=== PATIENT | female | born 1990 | race Caucasian/White ===

== ENCOUNTER → 2017-07-01 12:45 | Outpatient (CLI) | payer OTHER, SELFPAY ==
--- NOTE | 2017-07-01 12:50 | HPBI_ITS ---
MAMMOGRAPHY - BILATERAL DIAGNOSTIC REASON FOR EXAM: Female, 27 years old. 2 week history of left breast pain and right breast soreness. PERTINENT HISTORY: Mother with breast cancer. TECHNIQUE: Digital bilateral breast roel (3D mammographic acquisition) in the CC and MLO projections. 2-D mediolateral oblique (MLO) and craniocaudad (CC) views of both breasts were obtained. CAD: Full Field Digital Mammography with Computer Added Detection was performed. COMPARISON: None. Baseline examination. FINDINGS: Breast Composition: The breasts are extremely dense, which lowers the sensitivity of mammography. There are no dominant masses or suspicious calcifications. No other significant abnormalities are identified. HPBI/DIAG MAMM W/CAD, BILAT IMPRESSION: Negative diagnostic mammogram. With the patient's history of right breast pain, correlation with ultrasound is recommended. ASSESSMENT CATEGORY: BIRADS Category 0: Incomplete. Need additional imaging evaluation. A letter regarding these results will be sent to the patient by the facility within 30 days. Approximately 10% of breast cancers are not detected by mammography. A normal mammogram should not delay biopsy of a clinically suspicious abnormality. Electronically Signed: Omar Michel MD at 13:55 EST Tel [phone], Service support ,
--- NOTE | 2017-07-01 12:50 | US_ITS ---
STUDY: ULTRASOUND BREAST - LEFT REASON FOR EXAM: Female, 27 years old. Pain in the left breast. TECHNIQUE: Axial and longitudinal images of the LEFT breast were performed with a high resolution ultrasound transducer. COMPARISON: Comparison is made with prior mammogram done earlier today. FINDINGS: LEFT Breast: There is a 1.2 cm x 1.4 cm x 0.6 cm cyst at the 3:00 position breast a 1 cm from the nipple. There is also evidence of a 1.3 cm x 1.2 cm x 0.5 cm benign appearing lymph node at the 5:00 position of the breast at 6 on recent nipple. US/Breast Limited Unilateral IMPRESSION: 1.2 cm x 1.4 cm x 0.6 m cyst at the 3:00 position of the breast at 1 cm from the nipple. 1.3 cm x 1.2 cm x 0.5 cm lymph node at the 5:00 position of the breast is 6 cm from the nipple. ASSESSMENT CATEGORY: BIRADS Category 2: Benign. A letter regarding these results will be sent to the patient by the facility within 30 days. Electronically Signed: Omar Michel MD at 15:09 EST Tel [phone], Service support ,
== END ==
PROVIDERS: Family Provider Family Medicine; PCP Family Medicine; Visit Provider Obstetrics & Gynecology
DX: N64.4 Mastodynia (principal)
CPT/HCPCS: 76642; 77062; 77066; G0279

== ENCOUNTER → 2017-12-26 12:18 | Outpatient (CLI) | payer OTHER, SELFPAY ==
--- NOTE | 2017-12-26 12:22 | RAD_ITS ---
STUDY: X-RAY - RIGHT ANKLE REASON FOR EXAM: Female, 27 years old. Pain TECHNIQUE: 3 view(s) of the ankle. COMPARISON: None. FINDINGS: Normal visualized distal tibia and fibula. Normal medial and lateral malleoli. Normal tibiotalar articulation and ankle mortise. Normal visualized talus and calcaneus. The visualized subtalar, talonavicular, calcaneocuboid and tarsal articulations are normal. Evidence of previous surgery to the navicular. The soft tissue structures are unremarkable. RAD/Ankle min 3 Views IMPRESSION: Normal x-ray examination of the ankle. Electronically Signed: Conner Clark MD at 12:31 EDT , Service support ,
== END ==
PROVIDERS: Family Provider Family Medicine; PCP Family Medicine; Visit Provider Family Medicine
DX: M25.571 Pain in right ankle and joints of right foot (principal)
CPT/HCPCS: 73610

== ENCOUNTER → 2018-11-05 | Outpatient (CLI) | payer OTHER, SELFPAY ==
[2018-11-05 13:31] LABS: Follicle Stimulating Hormone 5.1 mIU/mL; Luteinizing Hormone 5.7 mIU/mL; Thyroid Stim Hormone (TSH) 0.89 uIU/mL (0.358-3.74)
== END | disposition home or self-care (01) ==
LOC: WOBLAB 10:52
PROVIDERS: Family Provider Family Medicine; PCP Family Medicine; Visit Provider Obstetrics & Gynecology
DX: N92.6 Irregular menstruation, unspecified (principal)
CPT/HCPCS: 36415; 83001; 83002; 84439; 84443

== ENCOUNTER → 2019-02-09 16:04 | Outpatient (CLI) | payer OTHER, SELFPAY ==
[2019-02-09 17:33] LABS: Progesterone Level 36.25 ng/mL (See Comment)
== END ==
PROVIDERS: Visit Provider Obstetrics & Gynecology
DX: N97.0 Female infertility associated with anovulation (principal)
CPT/HCPCS: 36415; 84144

== ENCOUNTER → 2019-03-09 14:55 | Outpatient (CLI) | payer OTHER, SELFPAY | PROVIDERS: Visit Provider Obstetrics & Gynecology | DX: Z34.81 Encounter for supervision of other normal pregnancy, first trimester (principal); Z12.4 Encounter for screening for malignant neoplasm of cervix; Z11.3 Encounter for screening for infections with a predominantly sexual mode of transmission ==

== ENCOUNTER → 2019-04-12 16:46 | Outpatient (CLI) | payer OTHER, SELFPAY ==
[2019-04-12 17:16] LABS: Color, Urine Yellow (Yellow); Glucose, Dipstick Normal (Normal); Ketone-Dipstick Negative (Negative); Leukocyte Esterase-Dipstick 500 /ul (Negative); Nitrite-Dipstick Negative (Negative); Occult Blood-Urine 25 /ul (Negative); Protein-Dipstick Negative (Negative); Urine Bilirubin Dipstick Negative (Negative); Urine Clarity Sl. Cloudy (Clear); Urine Urobilinogen Normal (Normal); Urine pH 6.5 (5.0 - 8.0)
[2019-04-12 17:22] LABS: Absolute Lymphocyte Count 3.03 X10^3/uL (0.83-4.51); Absolute Neutrophil Count 6.9 X10^3/uL (2.0-7.7); Basophil# 0.06 X10^3/uL; Basophil% 0.5 % (0-1); Eosinophil# 0.16 X10^3/uL; Eosinophils% 1.4 % (0-5); Hematocrit 39.6 % (37-47); Hemoglobin 13.5 g/dL (12.0-15.0); Lymphocyte # 3.03 X10^3/ul (4.0); Lymphocyte % 27.3 % (19-41); Mean Corp Hgb Conc 34.1 g/dL (32-36); Mean Corpuscular Hgb 29.7 pg (27.0-32.0); Mean Platelet Vol. 10.7 fl (6.2-12.0); Monocyte# 0.88 X10^3/uL; Monocyte% 7.9 % (0-10); NRBC Flagged by Analyzer 0 % (0-5); Neutrophil # 6.94 X10^3/uL (2.7-7.7); Neutrophil % 62.6 % (47-70); Platelet Count 254 K/mm3 (150-450); RBC Distribution Width CV 13.7 % (11.6-14.6); RBC Distribution Width SD 43.4 fl (35.1-43.9); Red Blood Count 4.55 M/mm3 (4.2-5.4); White Blood Count 11.1 K/mm3 (4.4-11.0)
[2019-04-12 18:06] LABS: Thyroid Stim Hormone (TSH) 0.41 uIU/mL (0.358-3.74)
[2019-04-13 10:26] LABS: HIV - WCH Non-Reactive (Nonreactive); Hepatitis B Surface Antigen Non-Reactive (Nonreactive); Hepatitis C Antibody Non-Reactive (Nonreactive); Rubella IgG 233.1 IU/mL
[2019-04-15 02:46] LABS: Prenatal RPR NONREACTIVE (NONREACTIVE)
== END ==
PROVIDERS: Visit Provider Obstetrics & Gynecology
DX: Z34.81 Encounter for supervision of other normal pregnancy, first trimester (principal)
CPT/HCPCS: 36415; 81002; 84443; 85025; 86703; 86762; 86803; 87340

== ENCOUNTER → 2019-07-13 | Outpatient (CLI) | payer OTHER, SELFPAY ==
[2019-07-13 16:48] LABS: Mucous, Urine 0 SEEN /hpf (<or=2+); Red Blood Cells-Urine 0 SEEN /hpf (0-5)
[2019-07-13 17:12] LABS: Color, Urine Yellow (Yellow); Glucose, Dipstick Normal (Normal); Ketone-Dipstick Negative (Negative); Leukocyte Esterase-Dipstick 500 /ul (Negative); Nitrite-Dipstick Negative (Negative); Occult Blood-Urine 10 /ul (Negative); Protein-Dipstick 15 mg/dl (Negative); Urine Bilirubin Dipstick Negative (Negative); Urine Clarity Cloudy (Clear); Urine Urobilinogen Normal (Normal)
[2019-07-13 17:45] LABS: Bacteria 3+ /hpf (None Seen); Squamous Epithelial Cells - UA 10-25 SEEN /hpf (5-10)
[2019-07-13 17:48] LABS: White Blood Cells 50-100 SEEN /hpf (0-5)
== END | disposition home or self-care (01) ==
LOC: LABSPEC 16:45
PROVIDERS: Referring Provider Obstetrics & Gynecology; Visit Provider Obstetrics & Gynecology
DX: Z34.82 Encounter for supervision of other normal pregnancy, second trimester (principal)
CPT/HCPCS: 81001; 87086; 87088

== ENCOUNTER → 2019-07-26 | Outpatient (CLI) | payer OTHER, SELFPAY | END | disposition home or self-care (01) | LOC: LABSPEC 16:36 | PROVIDERS: Referring Provider Obstetrics & Gynecology; Visit Provider Obstetrics & Gynecology | DX: N39.0 Urinary tract infection, site not specified (principal) | CPT/HCPCS: 87086; 87088 ==

== ENCOUNTER → 2019-08-11 13:21 | Outpatient (CLI) | payer OTHER, SELFPAY ==
[2019-08-11 15:46] LABS: Hematocrit 34.8 % (37-47); Hemoglobin 11.8 g/dL (12.0-15.0); Mean Corp Hgb Conc 33.9 g/dL (32-36); Mean Corpuscular Hgb 30.3 pg (27.0-32.0); Mean Corpuscular Volume 89.5 fL (81-99); Mean Platelet Vol. 11.1 fl (6.2-12.0); Platelet Count 233 K/mm3 (150-450); RBC Distribution Width CV 13.1 % (11.6-14.6); RBC Distribution Width SD 42.7 fl (35.1-43.9); Red Blood Count 3.89 M/mm3 (4.2-5.4); White Blood Count 12.4 K/mm3 (4.4-11.0)
[2019-08-11 16:01] LABS: Glucose Challenge Gest 1H 50g 99 mg/dL (70-140)
== END ==
PROVIDERS: Visit Provider Obstetrics & Gynecology
DX: Z34.83 Encounter for supervision of other normal pregnancy, third trimester (principal)
CPT/HCPCS: 36415; 82950; 85027

== ENCOUNTER → 2019-09-17 | Outpatient (CLI) | payer OTHER, SELFPAY ==
--- NOTE | 2019-09-17 11:34 | VDLE_ITS ---
Reason For Study: Pain Procedure LEFT Exam performed in department. GSV is normal. A preliminary report was called and/or faxed CFV is compressible, spontaneous, phasic, to Eddie. competent, and demonstrates normal augmentation. FV is compressible, spontaneous, phasic, competent and demonstrates normal augmentation. POP V is compressible, spontaneous, phasic, competent and demonstrates normal augmentation. T/P Trunk is compressible. PTV is compressible. LT PerV is compressible. Interpretation Summary There is no evidence of left lower extremity deep vein thrombosis. Left great saphenous vein appears patent and compressible segmentally. Ordering Physician: Dolores Morgan Performed By: Elba Ocasio RVT
[2019-09-17 16:49] LABS: Bacteria 0 SEEN /hpf (None Seen); Mucous, Urine 0 SEEN /hpf (<or=2+); Red Blood Cells-Urine 0 SEEN /hpf (0-5); White Blood Cells 0 SEEN /hpf (0-5)
[2019-09-17 17:20] LABS: Color, Urine Yellow (Yellow); Glucose, Dipstick Normal (Normal); Ketone-Dipstick Negative (Negative); Leukocyte Esterase-Dipstick Negative /ul (Negative); Nitrite-Dipstick Negative (Negative); Occult Blood-Urine Negative /ul (Negative); Protein-Dipstick Negative (Negative); Urine Bilirubin Dipstick Negative (Negative); Urine Clarity Sl. Cloudy (Clear); Urine Urobilinogen Normal (Normal)
[2019-09-17 17:52] LABS: Amorphous Sediment 2+ URATE; Squamous Epithelial Cells - UA 0-5 SEEN /hpf (5-10)
== END | disposition home or self-care (01) ==
LOC: CVS 11:33 → LABSPEC 16:36
PROVIDERS: Referring Provider Obstetrics & Gynecology; Visit Provider Obstetrics & Gynecology
DX: Z34.83 Encounter for supervision of other normal pregnancy, third trimester (principal); M79.662 Pain in left lower leg; Z87.440 Personal history of urinary (tract) infections
CPT/HCPCS: 81001; 87086; 87088; 93971

== ENCOUNTER → 2019-09-29 | Outpatient (CLI) | payer OTHER, SELFPAY | END | disposition home or self-care (01) | PROVIDERS: Visit Provider Obstetrics & Gynecology | DX: Z36.85 Encounter for antenatal screening for Streptococcus B (principal) | CPT/HCPCS: 87081 ==

== ENCOUNTER 2019-10-27 19:00 | Inpatient (IN) | payer OTHER, SELFPAY ==
[2019-10-27 19:20] VITALS: BP 134/96; PULSE 99
[2019-10-27 19:21] VITALS: BP 119/82; PULSE 91
--- NOTE | 2019-10-27 21:19 | HP.PCM_ITS ---
- Problem List (1) 40 weeks gestation of Status: Acute History Date of Admission: 10/27/19 Final RAMY: 10/27/19 Final RAMY Source: US <20 weeks Gestational age: 40 Weeks and 1 Days History of this : This is a 29 year-old, G [1], P [0], at 40.0 weeks gestational age. Allergies No Known Allergies Allergy (Verified 10/27/19 19:33) Home Medications: Home Medications Vit No.130/Iron/Folic [ Tablet] 1 tab PO DAILY 10/27/19 Alcohol: None Number of Fetus(es): 1 NST - FHR Rate Baby A Baseline: 150 Variability:: Moderate Accelerations:: 15 x 15 Decelerations:: None NST Reactive:: Yes FHR Category:: Category I Uterine Activity:: quiet History Past Pregnancies: Past Pregnancies: none Labs: Mom's Microbiology 10/27/19 23:30 Mucosa - Nasopharyngeal Coronavirus COVID-19 PCR - Final Mom's Problem List Problem Status Onset Code 40 weeks gestation of Acute Z3A.40 Mom's Labs & Results 10/27/19 10/27/19 21:35 21:35 WBC 12.7 H RBC 4.22 Hgb 12.2 Hct 36.5 L MCV 86.5 MCH 28.9 MCHC 33.4 RDW Std Deviation 41.1 RDW Coeff of Ang 13.2 Plt Count 260 MPV 11.8 Immature Gran % (Auto) 0.400 Neut % (Auto) 66.5 Lymph % (Auto) 25.1 [place] % (Auto) 5.8 Eos % (Auto) 1.7 Baso % (Auto) 0.5 Absolute Neuts (auto) 8.5 H Absolute Lymphs (auto) 3.19 Nucleated RBC % 0 Blood Type A POSITIVE Antibody Screen NEGATIVE Course Did the patient receive Yes care? Labs Blood Type: A RH: POSITIVE RPR/VDRL/Syphilis Nonreactive Rubella status Immune HbSAg Negative Date Done: 04/12/19 Chlamydia Negative Gonorrhea Negative HIV/AIDS Non-Reactive Group B Strep: Negative Current Obstetrical History Gestational Diabetes No Incompetent Cervix No Infertility Yes: clomid IUGR No Macrosomia No Hypertension/Pre-eclampsia No Placenta Previa/Abruption No PTL/PROM No Uterine anomaly No Oligohydramnios No Polyhydramnios No Multiple gestation Yes: began with 4 sacs, only one FHR one week later Past Medical History Asthma No Diabetes No Hypertension No Heart disease No Mitral valve prolapse No Neurologic/Seizure disorder/ No Migraines Kidney disease No Liver disease No Varicosities No Clotting disorders/Hx of DVT No Thyroid Dysfunction No Other medical diseases No Psychiatric disorders No Major trauma No Abnormal PAP smear No Sleep apnea No Mammogram in the last 2 years Yes: for cyst-came back okay Social History Marital Status: Alleged father Troy Posada Hx Smoking No Smoking Status Never smoker How long have you used pt denies substances (years)? Expected Delivery Method: Spontaneous Vaginal Number of Visits: 12 Review of Systems Constitutional: Denies: Chills, Fever, Weight Change HEENT: Denies: Head Aches, Sinus Congestion, Sinus Drainage Cardiovascular: Denies: Chest Pain, Palpitations Respiratory: Denies: Cough, Shortness of breath at rest, Sputum production Gastrointestinal: Denies: Abdominal Pain, Nausea, Vomiting Genitourinary: Denies: Dysuria Musculoskeletal: Denies: Joint Pain, Joint Tenderness Skin: Denies: Rash, Wounds Neurological: Denies: Numbness, Tingling, Focal weakness Psychiatric: Denies: Anxiety, Depression, Homicidal Ideations, Suicidal Ideations Hematologic/ Lymphatic: Denies: Easy Bruising, Easy Bleeding Physical Exam Vitals: Vital Signs Pulse BP 91 119/82 H 10/27/19 19:21 10/27/19 19:21 General: Alert, Oriented x3, No apparent distress HEENT: Atraumatic, Normocephalic. Negative for: Thyromegaly, Lymphadenopathy Cardiovascular: Regular rate, Regular Rhythm Lungs: Clear to auscultation Abdomen: Bowel Sounds Present, Gravid Neurological: Deep Tendon Reflexes 2+/4 and Symmetrical, Neuro grossly intact [employer]: Normal external genitalia. Negative for: Vulvar lesions Estimated gestational size: Appropriate for gestational size Presentation: Cephalic Cervix Dilation (cm): 1 Station: -3 Effacement (%): 20 Assessment/Plan All Active Problems 40 weeks gestation of (Acute) A/P: This is a 29 year-old, G [1], P [0], at 40 weeks gestational age. Here for elective induction of labor SVE 06/21/-3, will proceed with Cytotec induction NST Category I FHR Expect Procedure Criteria Procedure Type: Elective Risk to Patient if Procedure Delayed: Risk of rapidly worsening to severe symptoms if delayed - COVID Risk Discussion: The surgeon/proceduralist and patient have discussed in detail the risk of exposure to and/or potential harm posed by the COVID-19 virus with having a surgery/procedure at this time versus the risk of delaying the surgery/procedure. It is not possible to know either the risk of delaying the surgery or procedure or chance of getting an infection with perfect accuracy, but a joint decision was made between the patient and the surgeon/proceduralist to proceed at this time with the scheduled surgery/procedure as indicated on the consent form.
[2019-10-27 21:22] VITALS: BMI 29.4
[2019-10-27 21:23] VITALS: BP 122/81; PULSE 107
[2019-10-27 21:24] VITALS: TEMP 36.8
[2019-10-27] MEDS: 0.9% Saline Lock 10 ML Syringe IV (21:35)
[2019-10-27 21:57] LABS: Absolute Lymphocyte Count 3.19 X10^3/uL (0.83-4.51); Absolute Neutrophil Count 8.5 X10^3/uL (2.0-7.7); Basophil# 0.06 X10^3/uL; Basophil% 0.5 % (0-1); Eosinophil# 0.22 X10^3/uL; Eosinophils% 1.7 % (0-5); Hematocrit 36.5 % (37-47); Hemoglobin 12.2 g/dL (12.0-15.0); Lymphocyte # 3.19 X10^3/ul (4.0); Lymphocyte % 25.1 % (19-41); Mean Corp Hgb Conc 33.4 g/dL (32-36); Mean Corpuscular Hgb 28.9 pg (27.0-32.0); Mean Corpuscular Volume 86.5 fL (81-99); Mean Platelet Vol. 11.8 fl (6.2-12.0); Monocyte# 0.74 X10^3/uL; Monocyte% 5.8 % (0-10); NRBC Flagged by Analyzer 0 % (0-5); Neutrophil # 8.45 X10^3/uL (2.7-7.7); Neutrophil % 66.5 % (47-70); Platelet Count 260 K/mm3 (150-450); RBC Distribution Width CV 13.2 % (11.6-14.6); RBC Distribution Width SD 41.1 fl (35.1-43.9); Red Blood Count 4.22 M/mm3 (4.2-5.4); White Blood Count 12.7 K/mm3 (4.4-11.0)
[2019-10-27] MEDS: miSOPROStol 25 MCG TABLET VAGINAL (22:13)
[2019-10-28] VITALS (41 sets, daily range): BP systolic 105–143; BP diastolic 55–95; PULSE 66–100; RESP 16; TEMP 36.6–37.7; O2SAT 94–100
[2019-10-28] MEDS: DiphenhydrAMINE 50 MG/ML Syringe IV (01:33)
[2019-10-28] MEDS: 0.9% Saline Lock 10 ML Syringe IV ×2 (01:33→21:23)
[2019-10-28] MEDS: miSOPROStol 50 MCG TABLET VAGINAL (02:35)
[2019-10-28] MEDS: Lactated Ringers 500 ML 999 ML IV (08:52)
--- NOTE | 2019-10-28 08:56 | PN.OBGYN_ITS ---
Patient Problems: Active and Suspected Problems 40 weeks gestation of (Acute) Subjective: Feeling okay, but crampy. Is already uncomfortable and wanting epidural as soon as possible. Got little sleep last night and ready to get things started. Objective: SVE 4/50/-2 midposition moderate, AROM with clear fluids. FHR baseline 135, +accels, -decels, moderate variability. UC 1.5-3 minutes. - Physical Exam Vitals/I&O's: Vital Signs Temp Pulse BP Pulse Ox 98.1 F 95 126/89 H 98 10/28/19 07:24 10/28/19 07:24 10/28/19 07:24 10/28/19 07:24 Weight: 87.713 kg Body Mass Index (BMI) 29.4 General: Alert, Oriented x3, Cooperative HEENT: Atraumatic, PERRLA, EOMI, Normocephalic Neck: Supple, No JVD, Negative Carotid Bruits Lungs: Clear to auscultation, Normal air movement Cardiovascular: Regular rate, No murmurs Abdomen: Bowel Sounds Present, Soft, Non Tender Extremities: No edema, Capillary Refill Less than 3 Seconds Skin: No rashes, No breakdown Musculoskeletal: No Tenderness to Palpation of Joints or Extremities Neurological: Cranial nerves II-XII grossly intact Psych/Mental Status: Normal Affect, Appropriate Microbiology Past 72 Hours 10/27/19 23:30 Mucosa - Nasopharyngeal Coronavirus COVID-19 PCR - Final Laboratory Results 10/27/19 21:35: WBC 12.7 H, RBC 4.22, Hgb 12.2, Hct 36.5 L, MCV 86.5, MCH 28.9, MCHC 33.4, RDW Std Deviation 41.1, RDW Coeff of Ang 13.2, Plt Count 260, MPV 11.8, Immature Gran % (Auto) 0.400, Neut % (Auto) 66.5, Lymph % (Auto) 25.1, [place] % (Auto) 5.8, Eos % (Auto) 1.7, Baso % (Auto) 0.5, Absolute Neuts (auto) 8.5 H, Absolute Lymphs (auto) 3.19, Nucleated RBC % 0 10/27/19 21:35: Blood Type A POSITIVE, Antibody Screen NEGATIVE Current Medications Acetaminophen (Tylenol) 325 - 650 mg PO Q4H PRN PRN PRN Reason: Pain Score 1-3/10 Al Hydroxide/Mg Hydroxide (Mylanta Ii) 15 - 30 ml PO Q4H PRN PRN PRN Reason: INDIGESTION Citric Acid/Sodium Citrate (Bicitra) 30 ml PO X1 PRN PRN Reason: Section Fentanyl Citrate (Sublimaze (100mcg Ampule)) 25 - 50 mcg IV Q2H PRN PRN PRN Reason: Pain Score 4-10/10 Lactated Ringer's () 500 mls @ 999 mls/hr IV .Q31M PRN PRN Reason: Epidural Last Admin: 10/28/19 08:52 Dose: 999 mls/hr Documented by: Lactated Ringer's () 500 mls @ 999 mls/hr IV .Q31M PRN PRN Reason: Corrective Measures Lactated Ringer's () 1,000 mls @ 50 mls/hr IV .Q20H SOLANGE Last Admin: 10/28/19 07:47 Dose: Not Given Documented by: Oxytocin/Sodium Chloride () 30 units in 500 mls @ 2 mls/hr IV .Q250H SOLANGE Misoprostol (Cytotec) 50 mcg VAGINAL Q6H SOLANGE Last Admin: 10/28/19 08:37 Dose: Not Given Documented by: Ondansetron HCl (Zofran) 4 mg IV Q4H PRN PRN PRN Reason: NAUSEA Prochlorperazine Edisylate (Compazine Iv) 10 mg IV Q6H PRN PRN PRN Reason: NAUSEA Sodium Chloride () 10 - 40 ml IV X1 PRN PRN Reason: SALINE FLUSH Last Admin: 10/28/19 01:33 Dose: 10 ml Documented by: Medical Necessity - Tobacco Use Smoking Status: Never smoker Assessment/Plan All Active Problems 40 weeks gestation of (Acute) A/P: at 40w1d here for elective IOL NST Category I FHR UC 1.5-3m SVE 3.5-4/40/-2 AROM, clear fluid Will start Pitocin Preparations in order for epidural Expect
[2019-10-28] MEDS: Lactated Ringers 1,000 ML 200 ML IV ×3 (09:22→17:33)
[2019-10-28] MEDS: Ondansetron 4 MG/2 ML Vial IV (09:45)
[2019-10-28] MEDS: fentaNYL-bupivacaine (epidural) 100 ML BAG EPIDURAL (09:47)
[2019-10-28] MEDS: Oxytocin 30 units/NS 500 ml 30 UNITS/500 ML IV.SOLN IV (10:13)
[2019-10-28] MEDS: Oxytocin 30 units/NS 500 ml 30 UNITS/500 ML IV.SOLN 334 UNITS IV (18:45)
[2019-10-28] MEDS: Methylergonovine 0.2 MG/ML Ampul IM (18:48)
--- NOTE | 2019-10-28 18:58 | OP.PCM_ITS ---
<Ofe Mackay - Last Filed: 10/28/19 19:03> Problem List (1) 40 weeks gestation of Status: Acute Vaginal Delivery Maternal Presentation: Elective Induction Method of Induction: Cytotec Amniotic Membrane Rupture Type: Artificial Amniotic Fluid Description: Clear Final RAMY: 10/27/19 Final RAMY Source: US <20 weeks Gestational age: 40 Weeks and 1 Days Date of Procedure: 10/28/19 Pre-Operative Diagnosis: IOL Post-Operative Diagnosis: Surgery/ Procedure Performed: Spontaneous Vaginal Delivery Anesthesiologist: Sylvia Alonzo Type of Anesthesia: Epidural Presentation: Vertex Placental Delivery Description: Spontaneous Cord Vessel Description: 3 Vessels Cord Gases drawn per routine: ABG Cord Entanglement: None Drain: Martin to straight drain Estimated Blood Loss: 350 A gender: Male (1 minute): 5 (5 minute): 9 Episiotomy Description: None Laceration: Perineal Extension/lac, 2nd degree Medications given after delivery: IV Pitocin, IM Methergin <Aidan Easley - Last Filed: 10/28/19 19:08> Vaginal Delivery [place] doctor who attended delivery (if requested by OB): Rajani Lauren Description of Procedure: Spontaneous vaginal delivery of a viable male with Apgars of 5/9 from an occiput anterior presentation with clear amniotic fluid and normal three-vessel placenta. No episiotomy. Second-degree midline laceration repaired with 3-0 Rapide suture under epidural. Kiwi vacuum used x1 gentle pull from low outlet to expedite delivery of the head after approximately 3 hours of pushing and increasing maternal fatigue. No pop offs. Sponges okay. Delivery physician: Aidan Easley MD. Placenta Disposition: [facility]
[2019-10-28] MEDS: Ibuprofen 600 MG Tablet PO (23:20)
[2019-10-29] MEDS: Acetaminophen 500 MG Tablet 1000 MG PO ×3 (04:15→21:23)
[2019-10-29 04:17] VITALS: BP 103/70; PULSE 56; RESP 14; TEMP 36.2
--- NOTE | 2019-10-29 08:30 | DCINST_ITS ---
Discharge Diet: No Restrictions Discharge Activity: Return to Normal Activity, May not drive while taking narcotic pain medications., May Shower May resume sexual activity in: 4-6 weeks Additional Activity Instructions:: Nothing in the vagina for 4-6 weeks. You may return to work/school in 6 weeks. Call your doctor if your incision/area has: Continuous Slow Oozing, Sudden Increased Bleeding, Increased Pain/ Swelling, Increased Redness, Foul Smelling Discharge Additional Instructions: If you experience any of the following, contact your healthcare provider. * Bleeding that soaks a pad every hour for 2 hours * Fever 100.4 or higher * Unrelieved incision or abdominal pain * Swelling, redness, discharge or bleeding from your incision or episiotomy site * Your incision begins to separate * Problems urinating (including inability to urinate or burning while urinating). * Visual changes * Severe headache * Flu-like symptoms * Pain or redness in one of both of your breasts * Pain, warmth, tenderness or swelling in your legs, especially the calf area * Frequent nausea and vomiting * Symptoms of depression or anxiety If you experience any of the following, call 911 or go to the nearest Emergency Room. * Chest pain * Problems breathing * Seizure activity * Partial or complete paralysis of a body part, slurred speech, weakness or drooping of the face, or a sudden inability to walk or hold your balance Allergies/Adverse Reactions: Allergies No Known Allergies Allergy (Verified 10/27/19 21:21) Medications to take at Discharge Vit No.130/Iron/Folic [ Tablet] 1 tab PO DAILY 10/27/19 Please Follow Up With: Ofe Mackay CNM When: Call to make an appointment with your CNM in 6 weeks. Test Results: Test results from this visit will be discussed in further detail at your follow- up appointment, if applicable.
--- NOTE | 2019-10-29 08:30 | PCM.DCVAG ---
Discharge Diet: No Restrictions Discharge Activity: Return to Normal Activity, May not drive while taking narcotic pain medications., May Shower May resume sexual activity in: 4-6 weeks Additional Activity Instructions:: Nothing in the vagina for 4-6 weeks. You may return to work/school in 6 weeks. Call your doctor if your incision/area has: Continuous Slow Oozing, Sudden Increased Bleeding, Increased Pain/ Swelling, Increased Redness, Foul Smelling Discharge Additional Instructions: If you experience any of the following, contact your healthcare provider. Bleeding that soaks a pad every hour for 2 hours Fever 100.4 or higher Unrelieved incision or abdominal pain Swelling, redness, discharge or bleeding from your incision or episiotomy site Your incision begins to separate Problems urinating (including inability to urinate or burning while urinating). Visual changes Severe headache Flu-like symptoms Pain or redness in one of both of your breasts Pain, warmth, tenderness or swelling in your legs, especially the calf area Frequent nausea and vomiting Symptoms of depression or anxiety If you experience any of the following, call 911 or go to the nearest Emergency Room. Chest pain Problems breathing Seizure activity Partial or complete paralysis of a body part, slurred speech, weakness or drooping of the face, or a sudden inability to walk or hold your balance Allergies/Adverse Reactions: Allergies No Known Allergies Allergy (Verified 10/27/19 21:21) Medications to take at Discharge Vit No.130/Iron/Folic [ Tablet] 1 tab PO DAILY 10/27/19 Please Follow Up With: Ofe Mackay CNM When: Call to make an appointment with your CNM in 6 weeks. Test Results: Test results from this visit will be discussed in further detail at your follow-up appointment, if applicable.
--- NOTE | 2019-10-29 08:30 | PCM.PN.OB ---
Patient Problems: Active and Suspected Problems 40 weeks gestation of (Acute) Subjective: Tired today, but feeling okay. Mild cramps with breast feeding and vaginal pain with movement. Using ice, Motrin and Tylenol for discomfort. States son is latching well from the left breast, but not the best from the right breast. Has been urinating well and passing flatus. Denies heavy bleeding or concerns. Objective: VSS. Fundus if firm, midline, u/1. Lochia rubra moderate. Vaginal laceration without erythema or edema. - Physical Exam Vitals/I&O's: Vital Signs Temp Pulse Resp BP Pulse Ox 97.1 F L 56 L 14 103/70 98 10/29/19 04:17 10/29/19 04:17 10/29/19 04:17 10/29/19 04:17 10/28/19 20:44 Oxygen Delivery Method Room Air Weight: 87.713 kg Body Mass Index (BMI) 29.4 Intake and Output for Last 24 Hours 10/27/19 10/28/19 10/29/19 23:59 23:59 23:59 Intake Total 3849.43 / 3849.43 Output Total 1400 / 1400 1000 / 1000 Balance 2449.43 / 2449.43 -1000 / -1000 General: Alert, Oriented x3, Cooperative HEENT: Atraumatic, PERRLA, EOMI, Normocephalic Neck: Supple, No JVD, Negative Carotid Bruits Lungs: Clear to auscultation, Normal air movement Cardiovascular: Regular rate, No murmurs Abdomen: Bowel Sounds Present, Soft, Non Tender Extremities: No edema, Capillary Refill Less than 3 Seconds Skin: No rashes, No breakdown Musculoskeletal: No Tenderness to Palpation of Joints or Extremities Neurological: Cranial nerves II-XII grossly intact Psych/Mental Status: Normal Affect, Appropriate Microbiology Past 72 Hours 10/27/19 23:30 Mucosa - Nasopharyngeal Coronavirus COVID-19 PCR - Final Current Medications Acetaminophen (Tylenol) 1,000 mg PO Q8H PRN PRN PRN Reason: Pain Score 1-3/10 Last Admin: 10/29/19 04:15 Dose: 1,000 mg Documented by: Bisacodyl (Dulcolax) 10 mg RECTAL UD PRN PRN Reason: If no BM Hydrocortisone (Hytone) 1 applic TOPICAL TID PRN PRN; Protocol PRN Reason: Discomfort Ibuprofen (Motrin) 600 mg PO Q6H PRN PRN PRN Reason: Pain Score 1-3/10 Last Admin: 10/28/19 23:20 Dose: 600 mg Documented by: Methylergonovine Maleate (Methergine) 0.2 mg IM X1 PRN PRN Reason: Excess bleeding/uterine atony Last Admin: 10/28/19 18:48 Dose: 0.2 mg Documented by: Ondansetron HCl (Zofran) 4 mg IV Q4H PRN PRN PRN Reason: Nausea Oxycodone HCl (Oxyir) 5 - 10 mg PO Q4H PRN PRN PRN Reason: Pain Score 4-10/10 Senna/Docusate Sodium (Senokot-S, Felicia-Colace) 1 - 2 tablet PO DAILY PRN PRN PRN Reason: Constipation Simethicone (Mylicon) 80 mg PO PCHS PRN PRN Reason: Indigestion/Stomach pain Sodium Chloride () 5 - 15 ml IV UD PRN PRN Reason: SALINE FLUSH Last Admin: 10/28/19 21:23 Dose: 10 ml Documented by: Throat Lozenges (Dermoplast (Sp)) 1 applic TOPICAL 4X/DAY PRN PRN; Protocol PRN Reason: Pain/Inflammation Medical Necessity - Tobacco Use Smoking Status: Never smoker Assessment/Plan All Active Problems 40 weeks gestation of (Acute) A/P: S/P Day #1 Normal involution and course Pain well controlled with oral medication mother, will have consult with her on latching on the right breast Dyad stable Will plan discharge tomorrow
[2019-10-29] MEDS: Ibuprofen 600 MG Tablet PO ×2 (08:41→16:19)
[2019-10-29 13:10] VITALS: BP 119/79; PULSE 84; TEMP 36.2
[2019-10-29 16:30] VITALS: BP 126/86; PULSE 78; TEMP 36.1
[2019-10-29 20:30] VITALS: BP 91/53; PULSE 80; RESP 14; TEMP 36.5
[2019-10-30] MEDS: Ibuprofen 600 MG Tablet PO ×2 (00:21→06:24)
[2019-10-30 01:29] VITALS: BP 103/68; PULSE 71; RESP 14; TEMP 36.6
[2019-10-30 08:30] VITALS: BP 107/71; PULSE 81; RESP 16; TEMP 36.1
--- NOTE | 2019-10-30 09:16 | PCM.PN.OB ---
Patient Problems: Active and Suspected Problems 40 weeks gestation of (Acute) Subjective: doing well no complaints pain controlled no CP SOB N V ambulating well tolerating po lochia moderate, going well - Physical Exam Vitals/I&O's: Vital Signs Temp Pulse Resp BP Pulse Ox 96.9 F L 81 16 107/71 98 10/30/19 08:30 10/30/19 08:30 10/30/19 08:30 10/30/19 08:30 10/28/19 20:44 Oxygen Delivery Method Room Air Weight: 193 lb 6 oz Body Mass Index (BMI) 29.4 Intake and Output for Last 24 Hours 10/28/19 10/29/19 10/30/19 23:59 23:59 23:59 Intake Total 3849.43 / 3849.43 Output Total 1400 / 1400 1000 / 1000 Balance 2449.43 / 2449.43 -1000 / -1000 General: Alert, Oriented x3 Microbiology Past 72 Hours 10/27/19 23:30 Mucosa - Nasopharyngeal Coronavirus COVID-19 PCR - Final Current Medications Acetaminophen (Tylenol) 1,000 mg PO Q8H PRN PRN PRN Reason: Pain Score 1-3/10 Last Admin: 10/29/19 21:23 Dose: 1,000 mg Documented by: Bisacodyl (Dulcolax) 10 mg RECTAL UD PRN PRN Reason: If no BM Hydrocortisone (Hytone) 1 applic TOPICAL TID PRN PRN; Protocol PRN Reason: Discomfort Ibuprofen (Motrin) 600 mg PO Q6H PRN PRN PRN Reason: Pain Score 1-3/10 Last Admin: 10/30/19 06:24 Dose: 600 mg Documented by: Methylergonovine Maleate (Methergine) 0.2 mg IM X1 PRN PRN Reason: Excess bleeding/uterine atony Last Admin: 10/28/19 18:48 Dose: 0.2 mg Documented by: Ondansetron HCl (Zofran) 4 mg IV Q4H PRN PRN PRN Reason: Nausea Oxycodone HCl (Oxyir) 5 - 10 mg PO Q4H PRN PRN PRN Reason: Pain Score 4-10/10 Senna/Docusate Sodium (Senokot-S, Felicia-Colace) 1 - 2 tablet PO DAILY PRN PRN PRN Reason: Constipation Simethicone (Mylicon) 80 mg PO PCHS PRN PRN Reason: Indigestion/Stomach pain Sodium Chloride () 5 - 15 ml IV UD PRN PRN Reason: SALINE FLUSH Last Admin: 10/28/19 21:23 Dose: 10 ml Documented by: Throat Lozenges (Dermoplast (Sp)) 1 applic TOPICAL 4X/DAY PRN PRN; Protocol PRN Reason: Pain/Inflammation Last Admin: 10/30/19 02:43 Dose: 1 applic Documented by: Medical Necessity - Tobacco Use Smoking Status: Never smoker Assessment/Plan All Active Problems 40 weeks gestation of (Acute) s/p PPD # 2 1. routine post delivery care 2. breast feeding- support given 3. rh positive 4. rubella immune
--- NOTE | 2019-11-10 14:28 | PCM.DC.SUM ---
Discharge Date and Diagnosis Date of Admission: 10/27/19 Date of Discharge: 10/30/19 Hospital Course and Treatment Operations: None Procedures: - - VAVD Summary of Care Provided: The patient is a 29 year old F delivered via vacuum delivery and had a routine recovery with a return of bowel and bladder function, denied any issues fu in office in 6 weeks - Physical Exam Vitals/I&O's: Vital Signs Temp Pulse Resp BP Pulse Ox 96.9 F L 81 16 107/71 98 10/30/19 08:30 10/30/19 08:30 10/30/19 08:30 10/30/19 08:30 10/28/19 20:44 Oxygen Delivery Method Room Air Weight: 193 lb 6 oz Body Mass Index (BMI) 29.4 Discharge Diet: No Restrictions Discharge Activity: Return to Normal Activity, May not drive while taking narcotic pain medications., May Shower May resume sexual activity in: 4-6 weeks Additional Activity Instructions:: Nothing in the vagina for 4-6 weeks. You may return to work/school in 6 weeks. Call your doctor if your incision/area has: Continuous Slow Oozing, Sudden Increased Bleeding, Increased Pain/ Swelling, Increased Redness, Foul Smelling Discharge Home Medications: Medications to take at Discharge Vit No.130/Iron/Folic [ Tablet] 1 tab PO DAILY 10/27/19 Please follow up with your Primary Care Physician in: 6 weeks Please Follow Up With: Ofe Mackay CNM When: 6 weeks Medical Necessity - Tobacco Use Smoking Status: Never smoker Meaningful Use Info Meaningful Use Diagnoses (Choose all that apply): None applicable
== END 2019-10-30 11:00 | disposition home or self-care (01) | DRG 807 ==
PROVIDERS: Obstetrics & Gynecology; Admitting Provider Obstetrics & Gynecology; Visit Provider Obstetrics & Gynecology
DX: O75.81 Maternal exhaustion complicating labor and delivery (principal); Z37.0 Single live birth; O70.1 Second degree perineal laceration during delivery; Z3A.40 40 weeks gestation of pregnancy
CPT/HCPCS: 59025; 59050; 85025; 86850; 86900; 86901; 87635; 99218; G2023; J7120; A4216; G0378; J2405; U0004

== ENCOUNTER → 2020-10-23 | Outpatient (CLI) | payer OTHER, SELFPAY ==
[2020-10-23 16:01] VITALS: BMI 29.4
[2020-10-26 18:02] LABS: HPV APTIMA, High Risk Negative (Negative)
== END | disposition home or self-care (01) ==
PROVIDERS: PCP Family Medicine; Visit Provider Obstetrics & Gynecology
DX: Z12.4 Encounter for screening for malignant neoplasm of cervix (principal)
CPT/HCPCS: 87624; 88175; G0145

== ENCOUNTER 2021-07-03 13:20 | Outpatient (CLI) | payer OTHER, SELFPAY ==
--- NOTE | 2021-07-03 13:30 | US_ITS ---
STUDY: THYROID ULTRASOUND REASON FOR EXAM: Female, 31 years old. Thyromegaly felt by doctor TECHNIQUE: Ultrasound evaluation of the thyroid was performed with real-time and static albright-scale imaging. COMPARISON: None. FINDINGS: RIGHT LOBE: The right lobe of the thyroid gland measures 4.9 cm x 2.2 cm x 1.6 cm. There is a homogeneous echotexture. 3 hypoechoic solid nodules are seen in the right lobe. The largest measures 7 mm x 6 mm x 3 mm. This is in the lower pole. LEFT LOBE: The left lobe of the thyroid gland measures 4.6 cm x 2.1 cm x 1.2 cm. There is a homogeneous echotexture. 2 cysts are seen in the lower pole. The larger measures 3 mm x 3 mm x 1 mm. ISTHMUS: The isthmus measures 2.3 mm. The regional lymph nodes are normal. US/Thyroid IMPRESSION: 2 subcentimeters cysts are seen in the lower pole of the left lobe. 3. Subcentimeter solid nodules are seen in the mid and lower pole of the right lobe of the thyroid. The largest nodule measures 6 mm x 5 mm x 3 mm. Electronically Signed: Omar Michel MD at 15:32 EST ,
[2021-07-03 15:47] LABS: T4 Free Direct 0.96 ng/dL (0.76-1.46); Thyroid Stim Hormone (TSH) 0.62 uIU/mL (0.358-3.74)
== END 2021-07-03 23:59 | disposition short-term general hospital (02) ==
PROVIDERS: Referring Provider Obstetrics & Gynecology; Visit Provider Obstetrics & Gynecology
DX: E01.0 Iodine-deficiency related diffuse (endemic) goiter (principal)
CPT/HCPCS: 36415; 76536; 84439; 84443

== ENCOUNTER → 2021-10-30 | Outpatient (CLI) | payer OTHER, SELFPAY ==
[2021-10-30 15:42] LABS: Amphetamine Urine VISTA NEGATIVE (<1000 ng/mL); Barbiturate Urine VISTA NEGATIVE (< 200 ng/mL); Benzodiazepine Urine VISTA NEGATIVE (< 200 ng/mL); Cocaine Urine VISTA NEGATIVE (< 300 ng/mL); Ecstacy Urine VISTA NEGATIVE (< 500 ng/mL); Methadone Urine VISTA NEGATIVE (< 300 ng/mL); PCP Urine VISTA NEGATIVE (< 25 ng/mL); THC Urine VISTA NEGATIVE (< 50 ng/mL); Vista UDS pH Range 7
[2021-11-01 22:07] LABS: Chlamydia By Nucleic Acid AMP Negative (Negative)
[2021-11-02 08:46] LABS: Gonococcus By Nucleic Acid AMP Negative (Negative)
== END | disposition home or self-care (01) ==
PROVIDERS: Visit Provider Obstetrics & Gynecology
DX: Z34.80 Encounter for supervision of other normal pregnancy, unspecified trimester (principal)
CPT/HCPCS: 80307; 87086; 87088; 87491; 87591

== ENCOUNTER → 2021-12-19 | Outpatient (CLI) | payer OTHER, SELFPAY ==
[2021-12-19 12:52] LABS: Absolute Lymphocyte Count 2.29 X10^3/uL (0.83-4.51); Absolute Neutrophil Count 8.4 X10^3/uL (2.0-7.7); Basophil# 0.05 X10^3/uL; Basophil% 0.4 % (0-1); Eosinophil# 0.17 X10^3/uL; Eosinophils% 1.5 % (0-5); Hematocrit 37.8 % (37-47); Hemoglobin 12.7 g/dL (12.0-15.0); Lymphocyte # 2.29 X10^3/ul (0.83-4.51); Lymphocyte % 19.9 % (19-41); Mean Corp Hgb Conc 33.6 g/dL (32-36); Mean Corpuscular Hgb 29.3 pg (27.0-32.0); Mean Corpuscular Volume 87.3 fL (81-99); Mean Platelet Vol. 12.5 fl (6.2-12.0); Monocyte# 0.57 X10^3/uL; Monocyte% 4.9 % (0-10); NRBC Flagged by Analyzer 0 % (0-5); Neutrophil # 8.39 X10^3/uL (2.7-7.7); Neutrophil % 72.9 % (47-70); Platelet Count 223 K/mm3 (150-450); RBC Distribution Width CV 13.3 % (11.6-14.6); RBC Distribution Width SD 42.5 fl (35.1-43.9); Red Blood Count 4.33 M/mm3 (4.2-5.4); White Blood Count 11.5 K/mm3 (4.4-11.0)
[2021-12-19 13:53] LABS: HIV - WCH Non-Reactive (Nonreactive); Hepatitis B Surface Antigen Non-Reactive (Nonreactive); Hepatitis C Antibody Non-Reactive (Nonreactive); Rubella IgG Reactive (Nonreactive); Syphilis Antibodies Non-reactive
== END | disposition home or self-care (01) ==
LOC: LAB 10:32
PROVIDERS: Referring Provider Obstetrics & Gynecology; Visit Provider Obstetrics & Gynecology
DX: Z34.80 Encounter for supervision of other normal pregnancy, unspecified trimester (principal)
CPT/HCPCS: 36415; 85025; 86703; 86762; 86780; 86803; 86850; 86900; 86901; 87340

== ENCOUNTER → 2022-02-25 | Outpatient (CLI) | payer OTHER, SELFPAY ==
[2022-02-25 13:44] LABS: Absolute Neutrophil Count 6.2 X10^3/uL (2.0-7.7); Basophil# 0.05 X10^3/uL; Basophil% 0.5 % (0-1); Eosinophil# 0.17 X10^3/uL; Eosinophils% 1.8 % (0-5); Hematocrit 37.3 % (37-47); Hemoglobin 12.2 g/dL (12.0-15.0); Mean Corp Hgb Conc 32.7 g/dL (32-36); Mean Corpuscular Hgb 29.5 pg (27.0-32.0); Mean Corpuscular Volume 90.1 fL (81-99); Mean Platelet Vol. 10.8 fl (6.2-12.0); Monocyte# 0.74 X10^3/uL; Monocyte% 7.7 % (0-10); NRBC Flagged by Analyzer 0 % (0-5); Neutrophil % 64.6 % (47-70); Platelet Count 212 K/mm3 (150-450); RBC Distribution Width CV 13.9 % (11.6-14.6); RBC Distribution Width SD 45.2 fl (35.1-43.9); Red Blood Count 4.14 M/mm3 (4.2-5.4); White Blood Count 9.6 K/mm3 (4.4-11.0)
[2022-02-25 13:52] LABS: Glucose Challenge Gest 1H 50g 96 mg/dL (70-140)
== END | disposition home or self-care (01) ==
LOC: PAVLAB 13:17
PROVIDERS: Referring Provider Obstetrics & Gynecology; Visit Provider Obstetrics & Gynecology
DX: Z34.80 Encounter for supervision of other normal pregnancy, unspecified trimester (principal)
CPT/HCPCS: 36415; 82950; 85025

== ENCOUNTER 2022-05-06 13:02 | Outpatient (CLI) | payer OTHER, SELFPAY ==
--- NOTE | 2022-05-06 13:11 | US_ITS ---
STUDY: SECOND AND THIRD TRIMESTER OBSTETRICAL ULTRASOUND - LIMITED REASON FOR EXAM: Female, 31 years old growth scan hx of LGA LMP: 08/25/2021. PRIOR ULTRASOUND: None. TECHNIQUE: Transabdominal TECHNICAL QUALITY: Adequate. FINDINGS: There is a single intrauterine fetus. The fetus is in a cephalic presentation. There is demonstrated cardiac activity with a heart rate of 140 bpm. There is a normal amniotic fluid volume. The largest amniotic fluid pocket measures 4.7 cm x 5.8 cm. The amniotic fluid index (WARNER) is 14.6 cm. The placenta is anterior in location and is not low lying. There are Grade 2 placental changes. The cervix measures 3.9 cm in length. BIOMETRY: BPD: 8.85 cm: 35 weeks, 6 days HC: 32.47 cm: 36 weeks, 5 days AC: 32.7 cm: 36 weeks, 4 days FL: 7.33 cm: 37 weeks, 4 days Age by LMP: 36 weeks, 2 days. RAMY by LMP: 06/01/2022. age by prior US: 35 weeks, 5 days. RAMY by prior US: 06/04/2022. age by current US: 36 weeks, 1 days. RAMY by current US: 06/02/2022. Estimated weight: 3048 grams, +/- 457 grams, 68 percentile. US/OB Limited With Biometrics IMPRESSION: Single live intrauterine gestation with a mean gestational age of 36 weeks and 1 day. Electronically Signed: Omar Michel MD at 8:45 EST ,
== END 2022-05-06 23:59 | disposition home or self-care (01) ==
PROVIDERS: Referring Provider Nurse Practitioner Women's Health; Visit Provider Registered Nurse
DX: Z34.90 Encounter for supervision of normal pregnancy, unspecified, unspecified trimester (principal); Z3A.34 34 weeks gestation of pregnancy
CPT/HCPCS: 76816; 87077; 87081; 87186

== ENCOUNTER 2022-05-29 10:25 | Inpatient (IN) | payer OTHER, SELFPAY ==
[2022-05-29] VITALS (46 sets, daily range): BP systolic 86–127; BP diastolic 52–89; PULSE 47–105; TEMP 36.1–37.1; O2SAT 95–100; BMI 30.9
[2022-05-29] MEDS: Lactated Ringers 1,000 ML 50 ML IV (10:50)
[2022-05-29 11:09] LABS: Absolute Lymphocyte Count 2.12 X10^3/uL (0.83-4.51); Absolute Neutrophil Count 7.3 X10^3/uL (2.0-7.7); Basophil# 0.05 X10^3/uL; Basophil% 0.5 % (0-1); Eosinophil# 0.14 X10^3/uL; Eosinophils% 1.3 % (0-5); Hematocrit 36.6 % (37-47); Hemoglobin 12.9 g/dL (12.0-15.0); Lymphocyte # 2.12 X10^3/ul (0.83-4.51); Lymphocyte % 20.3 % (19-41); Mean Corp Hgb Conc 35.2 g/dL (32-36); Mean Corpuscular Hgb 30.6 pg (27.0-32.0); Mean Corpuscular Volume 86.7 fL (81-99); Mean Platelet Vol. 10.8 fl (6.2-12.0); Monocyte# 0.78 X10^3/uL; Monocyte% 7.5 % (0-10); NRBC Flagged by Analyzer 0 % (0-5); Neutrophil # 7.31 X10^3/uL (2.7-7.7); Neutrophil % 70.1 % (47-70); Platelet Count 238 K/mm3 (150-450); RBC Distribution Width CV 13.7 % (11.6-14.6); RBC Distribution Width SD 42.8 fl (35.1-43.9); Red Blood Count 4.22 M/mm3 (4.2-5.4); White Blood Count 10.4 K/mm3 (4.4-11.0)
[2022-05-29] MEDS: Oxytocin 15 Units/NS 250ml 15 UNITS/250 ML IV.SOLN 2 UNITS IV (11:12)
[2022-05-29] MEDS: 0.9% Normal Saline Single 100 ML IV.SOLN. INTRA-UTER (11:43)
[2022-05-29] MEDS: LACTATED RINGERS 500 ML 999 ML IV ×3 (12:51→22:13)
--- NOTE | 2022-05-29 12:51 | HP.PCM.OB_ITS ---
HPI - General General Date of Admission: 05/29/22 HPI Narrative KULWANT MCGILL, is a 31 F who presents to L&D for elective IOL. She is a RAMY 06/01/2022 presenting at 39 weeks and 4 days. complicated by +GBS in urine and thyromegaly with normal labs Maternal Data Information RAMY Calculator Estimated Delivery Date Method Current WG Current Estimate 06/01/22 LMP (Certain) 39w 4d PFSH PFSH Medical History (Updated 05/29/22 @ 12:57 by Manuela Kamara CNM) Family history of cleft lip Thyroid disorder Vacuum-assisted vaginal delivery Home Medications prenat.vits,marco antonio,teq-[id number] 1 tab PO DAILY 10/17/21 [History Last Taken 05/28/22] Allergy/AdvReac Type Severity Reaction Status Date / Time No Known Allergies Allergy Verified 05/06/22 14:25 Family History Mother Breast cancer Grandmother Brain aneurysm Grandfather Diabetes Surgical History (Updated 05/29/22 @ 12:13 by Mary Pulliam) S/P foot surgery [place] teeth removed Social History adopted: No household members: spouse number of children: 1 current occupational status: employed 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 Date Name GA/Weeks Outcome Route Bth Weight Gen Labor Lgth Anesthesia Del Locatn Provider FOB 10/28/19 Manolo 40 live - full term Male epidur al [facility] Yuki Codie Delivery Date: 10/28/19 Last Updated by: Shy Rfuf No issues during or delivery Visit Details Expected Delivery Route/Plan Labor Preferences- CB/BF classes: no labor support person: Campos labor intervention preferences: [] pain management options preferred: epidural cut cord/dad catch: no : no PP control planned: discussed possible IUD discussed possible routes of delivery and associated risks: [] special requests: [] Plans covid vaccine: discussed Flu vaccine: given Tdap vaccine: given Rhogam: na LARC form signed: yes Problem list reviewed and updated with the most current plan of care details and appropriate orders placed. Relevant counseling for the gestational age provided. Continue routine care and follow up unless otherwise noted in visit notes/problem list details OB Flowsheet Initial Weight: Not Recorded Date -?-?-?-?-?-?-?-?-?-?-?-?- EGA Weight BP Urine Prot -?-?-?-?-?-?-?-?-?-?-?-?- Glucose FHR FuHt Pres Dilation -?-?-?-?-?-?-?-?-?-?-?-?- Effaced St Visit Note 11/27/21 -?-?-?--?-?-?-?-?-?-?-?-?- 13w 3d 190 lb 100/68 Negative -?-?-?-?-?-?-?-?-?-?-?-?- Negative -?-?-?-?-?-?-?-?-?-?-?-?- SM- no vb crmapi ng 01/02/22 -?-?-?-?-?-?-?-?-?-?-?-?- 18w 4d 191 lb 113/77 Negative -?-?-?-?-?-?-?-?-?-?-?-?- Negative 145 -?-?-?-?-?-?-?-?-?-?-?-?- JV- no lof, vagi nal bleeding, or cramping. anatomy us scheduled for 01/0701/29/22 -?-?-?-?-?-?-?-?-?-?-?-?- 22w 3d 196 lb 100/72 Negative -?-?-?-?-?-?-?-?-?-?-?-?- Negative 145 -?-?-?-?-?-?-?-?-?-?-?-?- JV- normal anato my, no complaints. glucola given for next visit. 02/25/22 -?-?-?-?-?-?-?-?-?-?-?-?- 26w 2d 200 lb 114/78 -?-?-?-?-?-?-?-?-?-?-?-?- 140 -?-?-?-?-?-?-?-?-?-?-?-?- SM- no vb lof go od fm no reuglar ctx 03/13/22 -?-?-?-?-?-?-?-?-?-?-?--?- 28w 4d 200 lb 4 oz 111/75 Nega tive -?-?-?-?-?-?-?-?-?-?-?-?- Negative 150 28 -?-?-?-?-?-?-?-?-?-?-?-?- JV- no lof, vagi nal bleeding ,or dec fm. normal glucola. got tdap and flu vaccine. 03/27/22 -?-?-?-?-?-?-?-?-?-?-?-?- 30w 4d 202 lb 6 oz 118/82 Nega tive -?-?-?-?-?-?-?-?-?-?-?-?- Negative 130 30 -?-?-?-?-?-?-?-?-?-?-?-?- JV- no lof, vagi nal bleeding, or dec fm. 04/10/22 -?-?-?-?-?-?-?-?-?-?-?-?- 32w 4d 203 lb 110/74 Negative -?-?-?-?-?-?-?-?-?-?-?-?- Negative 148 32 -?-?-?-?-?-?-?-?-?-?-?-?- MH-No VB, LOF. G ood FM. 04/22/22 -?-?-?-?-?-?-?-?-?-?-?-?- 34w 2d 205 lb 3 oz 118/74 -?-?-?-?-?-?-?-?-?-?-?-?- 130 34 -?-?-?-?-?-?-?-?-?-?-?-?- LC- no vb,lof,ct x. good fm. having increased vaginal itching. LC- no vb,lof,ctx. good fm. having increased vaginal itching. copious white curdy d/c order for diflucan sent. growth scan for 36 weeks. LC- no vb,lof,ctx. good fm. having increased vaginal itching. copious white curdy d/c order for diflucan sent. growth scan for 36 weeks 05/06/22 -?-?-?-?-?-?-?-?-?-?-?-?- 36w 2d 204 lb 2 oz 110/72 Nega tive -?-?-?-?-?-?-?-?--?-?-?-?- Negative 143 36 -?-?-?-?-?-?-?-?-?-?-?-?- MH-No VB, LOF. O cca BH CTX. GBS. Growth US prior to today's visit. 05/13/22 -?-?-?-?-?-?-?-?-?-?--?-?- 37w 2d 204 lb 112/70 Negative -?-?-?-?-?-?-?-?-?-?-?-?- Negative 140 38 -?-?-?-?-?-?-?-?-?-?-?-?- SM- no vb lof go od fm no regular ctx 05/22/22 -?-?-?-?-?-?-?-?-?-?-?-?- 38w 4d 204 lb 134/80 Negative -?-?-?-?-?-?-?-?-?-?-?-?- Negative 145 38 1 -?-?-?-?-?-?-?-?-?-?-?-?- 50 -1 JV- baby i s sitting low but dilated only 1 cm[address] she talked to Dr[address] Carranza last visit and due to her insurance change on Jun 02 she would like to be induced. risks discussed. NST FHR Rate Baby A Baseline: 150 Variability:: Moderate Accelerations:: 15 x 15 Decelerations:: Variable (quick resolution) Uterine Activity:: irregular ROS Cardiovascular Cardiovascular: Denies abdominal pain, chest pain, diaphoresis, dyspnea, edema or fatigue Respiratory/Chest Respiratory/Chest: Denies change in mental status, chest congestion, chest tightness, cough, shortness of breath at rest, shortness of breath with exertion, breast mass, breast pain, breast skin changes, breast swelling, change in breast shape or nipple discharge Gastrointestinal Gastrointestinal: Denies diarrhea, hemorrhoids, nausea, vomiting or weight changes Genitourinary Genitourinary: Denies abdominal discomfort, burning urination, change in libido, change in urinary stream, contractions, difficulty urinating, dysuria, movement, low back pain, urinary frequency, urinary hesitancy, urinary incontinence or urinary urgency Musculoskeletal Musculoskeletal: Reports none Integumentary Integumentary: Reports none Neurologic Neurologic: Reports none Psychiatric Psychiatric: Reports none Endocrine Endocrinology: Reports none Hematologic/Lymphatic Hematologic/Lymphatic: Reports none Allergic/Immunologic Allergic/Immunologic: Reports none Vital Signs Vital Signs Vital Signs: 05/29/22 10:55 05/29/22 10:55 05/29/22 10:55 Temperature 98.8 F Pulse Rate 96 Blood Pressure 116/69 BP Systolic 116 BP Diastolic 69 Pulse Ox 05/29/22 12:05 05/29/22 12:05 05/29/22 12:05 Temperature Pulse Rate 98 Blood Pressure 111/74 BP Systolic 111 BP Diastolic 74 Pulse Ox 95 05/29/22 12:04 Temperature 98.8 F Pulse Rate Blood Pressure BP Systolic BP Diastolic Pulse Ox Weight Weight: 203 lb 12.8 oz Body Mass Index (BMI) 30.9 Physical Exam Const alert, oriented x3 and no apparent distress General Appearance: cooperative, comfortable and well kempt; Negative for in distress Orientation / Consciousness: awake and oriented to person Exam Limitations: no limitations HEENT normocephalic Mouth: oral and palatal mucosa normal Neck full ROM and thyroid normal Chest inspection of chest normal Resp normal respiratory effort Effort and Inspection: able to speak in complete sentences and symmetric chest movement Cardio regular rate Peripheral Pulses: pulses 2+ throughout GI normal to inspection, nondistended, normoactive bowel sounds Inspection: gravid no CVA tenderness and appearance of the vagina normal External Female Exam: normal appearance of the urethra; Negative for external lesion OB / External & Speculum: external exam normal Manual OB Exam: estimated gestational size appropriate and presentation cephalic Uterus Palpation: Negative for uterus tender Extremity normal to inspection Skin no rashes or lesions noted Neuro deep tendon reflexes 2+ bilaterally and gait normal Motor Exam: strength 5/5 throughout and clonus absent Psych Activity / Motor Behavior: appropriate eye contact Speech: normal speech Labs Labs Labs: Blood Type A POSITIVE Antibody Screen NEGATIVE Hct 36.6 % (37-47) L Hgb 12.9 g/dL (12.0-15.0) Obstetrics US Syphilis Total Ab Non-reactive Rubella IgG Antibody Reactive (Nonreactive) Hep Bs Antigen Non-Reactive (Nonreactive) Chlamydia DNA (RO) Negative (Negative) Neisseria gonorrhoeae DNA (RO) Negative (Negative) HIV 1&2 Antibody Non-Reactive (Nonreactive) Glucose 1 Hr 50 gm 96 mg/dL (70-140) Rhogam given: No Miscellaneous Test Assessment & Plan (1) GBS (group B Streptococcus carrier), +RV culture, currently : COMMENT: PCN in labor (2) Encounter for induction of labor: PLAN: admit to L&d with routine orders harrison balloon with pitocin induction pain management per pt request. PCN for GBS Dr. Murphy aware of IOL, updated on POC and agrees with co-management of patient.
[2022-05-29] MEDS: fentaNYL-bupivacaine (epidural) 100 ML BAG EPIDURAL ×2 (14:26→19:02)
[2022-05-29] MEDS: Penicillin G 3,000,000 Units 50 ML 100 UNITS IV ×2 (15:22→19:35)
[2022-05-29] MEDS: Ondansetron 4 MG/2 ML Vial IV ×2 (17:30→22:48)
[2022-05-29 20:11] LABS: Bedside Glucose 78 mg/dL (74-106)
[2022-05-29] MEDS: Acetaminophen 500 MG Tablet PO (20:41)
[2022-05-29] MEDS: Lactated Ringers 1,000 ML 200 ML IV (21:01)
[2022-05-29] MEDS: Methylergonovine 0.2 MG/ML Ampul IM (21:48)
[2022-05-29] MEDS: 0.9% Saline Lock 10 ML Syringe IV (22:47)
--- NOTE | 2022-05-29 23:41 | EX.PCM.OBRPT ---
Assessment & Plan (1) GBS (group B Streptococcus carrier), +RV culture, currently : COMMENT: PCN in labor (2) (spontaneous vaginal delivery): COMMENT: 39 weeks elective IOL. girl. LC (3) hemorrhage: COMMENT: 500ml EBL methergine IM, pitocin CBC in AM Maternal Data Information RAMY Calculator Estimated Delivery Date Method Current WG Current Estimate 06/01/22 LMP (Certain) 39w 4d Vaginal Delivery Maternal Presentation Maternal Presentation: Elective Induction Type of Induction: Pitocin, Martin Bulb and Amniotomy Operative Information Date of Procedure: 05/29/22 Surgery / Procedure Performed: Spontaneous Vaginal Delivery Type of Anesthesia: Epidural Drain: Martin to straight drain Estimated Blood Loss: 500 Time of Delivery: 21:36 Findings Description of Procedure: Patient began pushing and delivered the head in the TAMI presentation. The head was delivered atraumatically. The anterior and posterior shoulders delivered without complication followed by the rest of the infant and the was placed on the maternal abdomen. Delayed cord clamping was employed for approximately 60 seconds. Cord was clamped and cut and gentle traction was applied to the cord and the placenta delivered spontaneously immediately following it was noted to be intact with three-vessel cord. The perineum and vagina were inspected and noted to have small superficial laceration repaired with 3.0. EBL was 500ml. Patient and infant tolerated delivery well. Presentation: TAMI Amniotic Membrane Rupture Type: Artificial Amniotic Fluid Description: Clear Placental Delivery Description: Spontaneous Placenta Disposition: [facility] Cord Vessel Description: 3 Vessels Cord Entanglement: None Infant A Gender: Female (1 minute): 8 (5 minute): 9 Delayed Cord Clamping: Yes Post Vaginal Delivery Medications Given After Delivery: IV Pitocin and IM Methergin Laceration: Midline (superficial) Procedures Urinary/Genital [id number]: [id number] Vaginal Delivery global pkg (CNM delivery)
[2022-05-30] VITALS (19 sets, daily range): BP systolic 96–114; BP diastolic 53–63; PULSE 66–146; RESP 14–18; TEMP 35.7–37.1; O2SAT 97–100
--- NOTE | 2022-05-30 00:25 | NURSING ---
superficial laceration repaired by Daria Kamara CNM
[2022-05-30] MEDS: 0.9% Saline Lock 10 ML Syringe IV (00:36)
--- NOTE | 2022-05-30 01:00 | NURSING ---
report given to Devin Boswell RN who is assuming care of pt at this time
--- NOTE | 2022-05-30 04:27 | NURSING ---
all late entry charting done due to patient care and unit acuity
[2022-05-30 06:18] LABS: Hematocrit 33.6 % (37-47); Hemoglobin 11.5 g/dL (12.0-15.0); Mean Corp Hgb Conc 34.2 g/dL (32-36); Mean Corpuscular Volume 87.7 fL (81-99); Mean Platelet Vol. 10.8 fl (6.2-12.0); Platelet Count 195 K/mm3 (150-450); RBC Distribution Width CV 13.5 % (11.6-14.6); RBC Distribution Width SD 42.8 fl (35.1-43.9); Red Blood Count 3.83 M/mm3 (4.2-5.4); White Blood Count 13.7 K/mm3 (4.4-11.0)
[2022-05-30] MEDS: Acetaminophen 500 MG Tablet 1000 MG PO ×3 (08:55→21:57)
[2022-05-30] MEDS: Naproxen 250 MG Tablet 500 MG PO (14:22)
[2022-05-31 01:03] VITALS: BP 94/59; PULSE 65
[2022-05-31 01:06] VITALS: BP 94/59; PULSE 65; RESP 16; TEMP 36.6
[2022-05-31 07:26] VITALS: BP 107/70; PULSE 58; PULSE 65; RESP 18; TEMP 36; O2SAT 97
--- NOTE | 2022-05-31 07:33 | PCM.PN.OB ---
Subjective Subjective late entry- patient seen 05/30- 7:00am Patient doing well without complaints. Tolerating PO. Ambulating and voiding without difficulty. Feeding well. Denies chest pain, shortness of breath, calf pain/swelling, fevers, chills, lightheadedness. Objective Data Objective Data Vital Signs: Vital Signs Temp Pulse Resp BP Pulse Ox O2 Del Method 96.8 F L 58 L 16 107/70 98 Room Air 05/31/22 07:26 05/31/22 07:26 05/31/22 01:06 05/31/22 07:26 05/30/22 00:31 05/30/22 15:49 Oxygen Delivery Method Room Air Weight: 92.442 kg Body Mass Index (BMI) 30.9 Intake & Output: Intake and Output for Last 24 Hours 05/29/22 05/30/22 05/31/22 23:59 23:59 23:59 Intake Total 3095.00 / 3095.00 152.08 / 152.08 Output Total 425 / 425 400 / 400 Balance 2670.00 / 2670.00 -247.92 / -247.92 Lab / Micro Data Result Diagrams: 05/30/22 06:05 ROS Constitutional Constitutional: Reports systems reviewed and no addt'l complaints, except as documented Cardiovascular Cardiovascular: Reports systems reviewed and no addt'l complaints, except as documented Respiratory/Chest Respiratory/Chest: Reports systems reviewed and no addt'l complaints, except as documented Gastrointestinal Gastrointestinal: Reports systems reviewed and no addt'l complaints, except as documented Physical Exam Const alert, oriented x3 and no apparent distress HEENT Head and Scalp: atraumatic Resp normal respiratory effort GI soft to palpation and non-tender Bimanual Exam - Vag & Uterus: uterus non-tender Uterus Palpation: uterus fundus firm (below Umbilicus) Assessment & Plan (1) hemorrhage: COMMENT: 500ml EBL methergine IM, pitocin CBC in AM (2) (spontaneous vaginal delivery): COMMENT: 39 weeks elective IOL. girl. PLAN: Plan s/p PPD # 1 1. routine post delivery care 2. bottle feeding- support given 3. rh positive 4. rubella immune blood counts stable doing well
--- NOTE | 2022-05-31 08:08 | PCM.PN.OB ---
Subjective Subjective Patient doing well without complaints. Tolerating PO. Ambulating and voiding without difficulty. Feeding well. Denies chest pain, shortness of breath, calf pain/swelling, fevers, chills, lightheadedness. Objective Data Objective Data Vital Signs: Vital Signs Temp Pulse Resp BP Pulse Ox O2 Del Method 96.8 F L 65 18 107/70 97 Room Air 05/31/22 07:26 05/31/22 07:26 05/31/22 07:26 05/31/22 07:26 05/31/22 07:26 05/31/22 07:26 Oxygen Delivery Method Room Air Weight: 203 lb 12.8 oz Body Mass Index (BMI) 30.9 Intake & Output: Intake and Output for Last 24 Hours 05/29/22 05/30/22 05/31/22 23:59 23:59 23:59 Intake Total 3095.00 / 3095.00 152.08 / 152.08 Output Total 425 / 425 400 / 400 Balance 2670.00 / 2670.00 -247.92 / -247.92 Lab / Micro Data Result Diagrams: 05/30/22 06:05 Physical Exam Const alert, oriented x3 and no apparent distress HEENT Head and Scalp: atraumatic Resp normal respiratory effort GI soft to palpation and non-tender Bimanual Exam - Vag & Uterus: uterus non-tender Uterus Palpation: uterus fundus firm (below Umbilicus) Assessment & Plan (1) hemorrhage: COMMENT: 500ml EBL methergine IM, pitocin CBC in AM (2) (spontaneous vaginal delivery): COMMENT: 39 weeks elective IOL. girl. PLAN: Plan s/p PPD # 2 1. routine post delivery care 2. breast feeding- support given 3. rh positive 4. rubella immune 5. d/c home today
--- NOTE | 2022-06-04 12:26 | NURSING ---
On follow up phone call mother doing well, no symptoms of high BP, baby formula fed and taking 2 oz every 3 hours, mother really liked Dylan Boykin
== END 2022-05-31 11:01 | disposition home or self-care (01) | DRG 806 ==
PROVIDERS: Admitting Provider Registered Nurse; Visit Provider Registered Nurse
DX: O76 Abnormality in fetal heart rate and rhythm complicating labor and delivery (principal); Z37.0 Single live birth; O72.1 Other immediate postpartum hemorrhage; O99.824 Streptococcus B carrier state complicating childbirth; Z87.59 Personal history of other complications of pregnancy, childbirth and the puerperium; O70.0 First degree perineal laceration during delivery; Z3A.39 39 weeks gestation of pregnancy
CPT/HCPCS: 59025; 59050; 82962; 85025; 85027; 86850; 86900; 86901; 99218; J7120; A4216; G0378; J2405

== ENCOUNTER → 2022-07-08 | Outpatient (CLI) | payer BC, SELFPAY ==
[2022-07-08 13:13] LABS: T4 Free Direct 0.88 ng/dL (0.76-1.46)
[2022-07-09 08:55] LABS: Thyroid Peroxidase AB < 9 IU/mL (0-34)
== END | disposition home or self-care (01) ==
LOC: LAB 11:47
PROVIDERS: Referring Provider Internal Medicine Endocrinology, Diabetes & Metabolism; Visit Provider Internal Medicine Endocrinology, Diabetes & Metabolism
DX: E04.9 Nontoxic goiter, unspecified (principal)
CPT/HCPCS: 36415; 84439; 84443; 86376

== ENCOUNTER → 2023-08-11 | Outpatient (CLI) | payer BC, SELFPAY ==
[2023-08-11 12:31] LABS: Absolute Lymphocyte Count 2.59 X10^3/uL (0.83-4.51); Absolute Neutrophil Count 5.7 X10^3/uL (2.0-7.7); Basophil# 0.09 X10^3/uL; Basophil% 0.9 % (0-1); Eosinophil# 0.32 X10^3/uL; Eosinophils% 3.3 % (0-5); Hematocrit 40.6 % (37-47); Hemoglobin 13.3 g/dL (12.0-15.0); Lymphocyte # 2.59 X10^3/ul (0.83-4.51); Lymphocyte % 26.5 % (19-41); Mean Corp Hgb Conc 32.8 g/dL (32-36); Mean Corpuscular Hgb 27.8 pg (27.0-32.0); Mean Corpuscular Volume 84.9 fL (81-99); Mean Platelet Vol. 11.1 fl (6.2-12.0); Monocyte# 1.09 X10^3/uL; Monocyte% 11.2 % (0-10); NRBC Flagged by Analyzer 0 % (0-5); Neutrophil # 5.65 X10^3/uL (2.7-7.7); Neutrophil % 57.9 % (47-70); Platelet Count 265 K/mm3 (150-450); RBC Distribution Width CV 12.8 % (11.6-14.6); RBC Distribution Width SD 39.8 fl (35.1-43.9); Red Blood Count 4.78 M/mm3 (4.2-5.4); White Blood Count 9.8 K/mm3 (4.4-11.0)
[2023-08-11 12:59] LABS: Vitamin B12 766 pg/mL (211-911); Vitamin D,25 Hydroxy 23.9 ng/mL
[2023-08-11 13:38] LABS: Ferritin 36 ng/mL (8-252); T4 Free Direct 0.87 ng/dL (0.76-1.46); Thyroid Stim Hormone (TSH) 1.03 uIU/mL (0.358-3.74)
[2023-08-12 04:07] LABS: Thyroid Peroxidase AB < 9 IU/mL (0-34)
== END | disposition home or self-care (01) ==
LOC: LAB 11:24
PROVIDERS: PCP Family Medicine; Referring Provider Internal Medicine Endocrinology, Diabetes & Metabolism; Visit Provider Internal Medicine Endocrinology, Diabetes & Metabolism
DX: E04.9 Nontoxic goiter, unspecified (principal); R53.81 Other malaise; R53.83 Other fatigue; E55.9 Vitamin D deficiency, unspecified
CPT/HCPCS: 36415; 82306; 82607; 82728; 84439; 84443; 85025; 86376

== ENCOUNTER → 2023-12-24 | Outpatient (CLI) | payer BC, SELFPAY ==
--- NOTE | 2023-12-24 16:54 | US_ITS ---
STUDY: ULTRASOUND OF THE FEMALE PELVIS - COMPLETE REASON FOR EXAM: Female, 33 years old. bleeding, IUD LMP: 12/12/2023 TECHNIQUE: Transabdominal and Transvaginal TECHNICAL QUALITY: Adequate. COMPARISON: None. FINDINGS: The uterus is anteverted and is in a midline position. The uterus measures 10.2 x 5.4 x 4.6 cm. There is a Nabothian cyst of the cervix. The endometrium measures 4 mm in thickness, and is hyperechoic. There is no demonstrated endometrial mass. There is no demonstrated myometrial mass. I.U.D. - The patient does have an I.U.D. The right ovary is visualized. The right ovary measures 4.0 x 2.7 x 2.1 cm. There is no right ovarian cyst or ovarian mass. There is no visualized right adnexal mass or complex lesion. There is normal arterial and normal venous vascularity. The left ovary is visualized. The left ovary measures 3.3 x 2.3 x 1.7 cm. There is no left ovarian cyst or ovarian mass. There is no visualized left adnexal mass or complex lesion. There is normal arterial and normal venous vascularity. There is minimal fluid in the cul-de-sac. The pre void volume of the bladder was ml. The post void volume of the bladder was ml. Polycystic ovary disease: No. US/Pelvic w/ Transvaginal IMPRESSION: Normal female pelvis with intrauterine device. Electronically Signed: Delbert Dasilva MD at 11:39 EDT ,
== END | disposition home or self-care (01) ==
LOC: US 16:53
PROVIDERS: Referring Provider Nurse Practitioner Women's Health; Visit Provider Nurse Practitioner Women's Health
DX: Z30.431 Encounter for routine checking of intrauterine contraceptive device (principal); N93.9 Abnormal uterine and vaginal bleeding, unspecified
CPT/HCPCS: 76830; 76856